=== PATIENT | female | born 1975 | race American Indian/Alaskan Native ===

== ENCOUNTER 2016-07-13 21:54 | Inpatient (IN) | payer OTHER ==
[2016-07-13] MEDS ORDERED: TYLENOL PO ONE (22:06)
[2016-07-13 23:07] LABS: Basophils % (Auto) 0.3 % (0.0-1.8); Eosinophils % (Auto) 0.9 % (0.0-4.3); Hematocrit 35.8 % (30.3-42.9); Hemoglobin 11.5 gm/dl (10.1-14.3); Mean Corpuscular HGB Conc 32 % (30-34); Platelet Count 362 K/mm3 (140-440); Red Blood Count 5.55 M/mm3 (3.65-5.03); Red Cell Distribution Width 15.2 % (13.2-15.2); White Blood Count 8.9 K/mm3 (4.5-11.0)
[2016-07-13 23:12] LABS: Mean Corpuscular Hemoglobin 21 pg (28-32); Mean Corpuscular Volume 65 fl (79-97)
[2016-07-13 23:31] LABS: Alanine Aminotransferase 23 units/L (7-56); Albumin 4.2 g/dL (3.9-5); Albumin/Globulin Ratio 1.3 %; Alkaline Phosphatase 71 units/L (35-129); Anion Gap 21 mmol/L; Bilirubin,Total 0.3 mg/dL (0.1-1.2); Blood Urea Nitrogen 9 mg/dL (7-17); Calcium 9.7 mg/dL (8.4-10.2); Carbon Dioxide 26 mmol/L (22-30); Chloride 95.6 mmol/L (98-107); Glucose 104 mg/dL (65-100); Lipase 24 units/L (13-60); Potassium 4.1 mmol/L (3.6-5.0); Sodium 138 mmol/L (137-145); Total Protein 7.5 g/dL (6.3-8.2)
[2016-07-13] MEDS: HEPARIN SUB-Q SCH (23:35)
[2016-07-14 01:14] LABS: Bilirubin,Urine NEG (Negative); Blood,Urine NEG (Negative); Ketones,Urine TR mg/dL (Negative); Leukocyte Esterase,Urine NEG (Negative); Mucus,Urine FEW /HPF; Nitrite,Urine NEG (Negative); Urobilinogen,Urine < 2.0 mg/dL (<2.0)
[2016-07-14] MEDS ORDERED: NACL 0.9% 1000 ML 1,000 ML IV ONE (03:04)
[2016-07-14] MEDS ORDERED: MORPHINE IV ONE (03:05)
[2016-07-14] MEDS ORDERED: ZOFRAN IV ONE (03:05)
--- NOTE | 2016-07-14 05:10 | Cat Scan Report ---
FINAL REPORT PROCEDURE: CT ABDOMEN PELVIS W CON TECHNIQUE: Computerized axial tomography of the abdomen and pelvis was performed after the IV injection of iodinated nonionic contrast. HISTORY: Abd pain upper abd COMPARISON: No prior studies are available for comparison. FINDINGS: Visualized lower thorax: No significant abnormality. Liver: Normal size and attenuation. Spleen: Normal size and attenuation. Gallbladder and biliary system: The gallbladder is distended. No evident stone formation is seen.. Pancreas: Normal. Adrenals: Normal. Kidneys: Normal. GI tract: There are few loops of fluid-filled dilated small bowel in the mid and lower abdomen. The loops of bowel are dilated up to 3.4 centimeters. Partial to complete small bowel obstruction are within the differential. The differential also includes ileus. The cecum, appendix and colon are normal.. Lymph nodes and mesentery: Normal. Vasculature: Normal. Bladder: Normal. Reproductive organs: The uterus is enlarged. There are multiple fibroids identified within the myometrium. No adnexal mass.. Peritoneum: No free fluid. Musculoskeletal structures: No significant abnormality. Other: None. IMPRESSION: There are multiple loops of dilated gas and fluid-filled small bowel in the mid and lower abdomen. Partial to complete small bowel obstruction is suspected. Ileus is also within the differential. Enlarged uterus with multiple fibroids.
--- NOTE | 2016-07-14 06:06 | Emergency Department Report ---
HPI - General Chief Complaint: Abdominal Pain Time Seen by Provider: 07/14/16 02:35 - HPI HPI: This is a 40-year-old Afro-Fijian female presents to the emergency department with complaint of a mid abdominal pain that has been going on intermittently for the past 2 weeks. However the pain got drastically worse today. There is no nausea, vomiting, diarrhea, fevers, back pain, vaginal bleeding or discharge. Patient has tried some ibuprofen for her discomfort without any relief. She denies any past medical history. She has a past surgical history of abdominal hernia repair as well as 2 C-sections. No recent travel or sick contacts at home. ED Past Medical Hx - Past Medical History Previous Medical History?: Yes Additional medical history: ABD HERNIA - Surgical History Past Surgical History?: Yes Additional Surgical History: HERNIA REPAIR / C SECTIONS X 2 - Social History Smoking Status: Never Smoker Substance Use Type: None - Medications Home Medications: Home Medications Medication Instructions Recorded Confirmed Last Taken Type No Known Home Medications [No 07/14/16 07/14/16 Unknown History Reported Home Medications] ED Review of Systems ROS: Stated complaint: ABD PAIN/EMESIS Other details as noted in HPI Comment: All other systems reviewed and negative Constitutional: denies: chills, fever Eyes: denies: eye pain, eye discharge, vision change ENT: denies: ear pain, throat pain Respiratory: denies: cough, shortness of breath, wheezing Cardiovascular: denies: chest pain, palpitations Gastrointestinal: abdominal pain. denies: nausea, vomiting Genitourinary: denies: urgency, dysuria, discharge Musculoskeletal: denies: back pain, joint swelling, arthralgia Skin: denies: rash, lesions Neurological: denies: headache, weakness, paresthesias Physical Exam - Physical Exam Vital Signs: Vital Signs 07/13/16 07/14/16 22:02 02:14 Temperature 98.8 F 98.7 F Pulse Rate 107 H 87 Respiratory 20 24 Rate Blood Pressure 128/95 Blood Pressure 125/89 [Right] O2 Sat by Pulse 100 100 Oximetry Physical Exam: GENERAL: The patient is well-developed well-nourished. HEENT: Normocephalic. Atraumatic. Extraocular motions are intact. Patient has moist mucous membranes. Pupils equal reactive to light bilaterally. NECK: Supple. Trachea is midline. CHEST/LUNGS: Clear to auscultation. There is no respiratory distress noted. HEART/CARDIOVASCULAR: Regular. There is no tachycardia. There is no gallop rub or murmur. ABDOMEN: Abdomen is soft. There is some generalized tenderness to palpation of the abdomen. Patient has normal bowel sounds. There is no abdominal distention. SKIN: There is no rash. Warm and dry. NEURO: The patient is awake, alert, and oriented. The patient is cooperative. The patient has no focal neurologic deficits. The patient has normal speech. MUSCULOSKELETAL: There is no tenderness or deformity. There is no limitation range of motion. There is no evidence of acute injury. ED Course Vital Signs 07/13/16 07/14/16 22:02 02:14 Temperature 98.8 F 98.7 F Pulse Rate 107 H 87 Respiratory 20 24 Rate Blood Pressure 128/95 Blood Pressure 125/89 [Right] O2 Sat by Pulse 100 100 Oximetry ED Medical Decision Making - Lab Data Result diagrams: 07/13/16 22:36 07/13/16 22:36 - Radiology Data Radiology results: report reviewed, image reviewed interpreted by me: Abdominal x-ray shows some areas of dilated loops. CT of the abdomen and pelvis with IV contrast shows multiple loops of dilated gas and fluid-filled small bowel in the mid and lower abdomen. Partial to complete small bowel obstruction is suspected. Ileus could also be within the differential. Enlarged uterus with multiple fibroids. - Medical Decision Making 40-year-old female presents to the emergency department with 2 week history of intermittent abdominal pain that got drastically worse today. Labs are mostly unremarkable. X-ray however shows some dilated dose of bowel. A CT of the abdomen and pelvis was done that shows partial to complete small bowel obstruction. Dr. Galeano has graciously agreed to admit the patient to his service. NG tube placed and returned to intermittent suction. Patient will be admitted for IV fluid resuscitation, pain control and further evaluation and treatment. - Differential Diagnosis bowel obstruction, ileus, gastroparesis, colitis Critical Care Time: No Critical care attestation.: If time is entered above; I have spent that time in minutes in the direct care of this critically ill patient, excluding procedure time. ED Disposition Clinical Impression: Small bowel obstruction Abdominal pain Qualifiers: Abdominal location: unspecified location Qualified Code(s): R10.9 - Unspecified abdominal pain Disposition: OP ADMITTED IP TO THIS HOSP Is pt being admited?: Yes Condition: Stable Instructions: Abdominal Pain (ED) Referrals: PRIMARY CARE, [Primary Care Provider] - 3-5 Days Time of Disposition: 06:07
[2016-07-14] MEDS: MORPHINE IV PRN ×4 (06:10→23:30)
[2016-07-14] MEDS: ZOFRAN IV PRN ×2 (06:30→11:21)
--- NOTE | 2016-07-14 06:54 | Admit Criteria Form ---
Admission Criteria Documentation: ABDOMINAL PAIN Clinical Indications for Admission to Inpatient Care (Place 'X' for any and all applicable criteria): Admission is indicated for ANY ONE of the following(1)(2)(3)(4)(5): [X ]I. Inpatient admission required rather than observation care (Also use Abdominal Pain: Observation Care, as appropriate) because of ANY ONE of the following: [ ]a) Severe pain requiring acute inpatient management [ ]b) Identification of etiology/finding that requires inpatient care (eg, aortic dissection, free air) [ ]c) Absent bowel sounds with complete ileus(6) [ ]d) Suspected toxic megacolon [ ]e) Severe electrolyte abnormalities requiring inpatient care [ ]f) High fever or infection requiring inpatient admission as indicated by ANY ONE of following(7)(8): [ ] i) Appropriate outpatient or observational care antimicrobial treatment unavailable, not effective, or not feasible [ ] ii) Documented bacteremia [ ] iii) Temperature > 104.9 degrees F (oral) [ ] iv) T >103.1 F (oral) or < 96.8 F(rectal) that does not respond to all emergency treatment measures [X ]g) Signs of intestinal obstruction [B] [ ]h) Hemodynamic instability [ ]i) IV fluid to replace significant ongoing losses (greater than 3 L/m2 per day) (12)(13) [ ]j) Percutaneous or open drainage (eg, abscess, biliary tract ) procedures [ ]k) Parenteral nutrition regimen that must be implemented on inpatient basis [ ]l) Other condition,treatment or monitoring requiring inpatient admission. [ ]II. Peritoneal signs present [ ]III. Surgery needed that cannot be performed on an ambulatory basis. [ ]IV. Evaluation requires patient to not eat or drink for extended period ( eg, more than 24 hours). [ ]V. Contraindications and/or Inappropriate clinical situations for Observational Care in patients with abdominal pain, when ANY ONE of the following is required: [ ]a) Thorough evaluation is required to prevent catastrophic events due to delays in diagnosing (e.g.Mesenteric ischemia) 1,3 [ ]b) Patient with severe pathology or with chronic symptoms unlikely to improve in the ED stay (3) [ ]. General contraindications and/or Inappropriate clinical situations for Observational Care in patients with abdominal pain, when ANY ONE of the following is required: [ ]a) Prediction of prolongation of LOS based on ANY ONE of the following may be considered as a contraindication for observational care 2, 3, 4, 5, 6, 7, 8, 9, 10, 11 [ ]i) Age > 65 yrs. [ ]ii) Patient arriving by ambulance [ ]iii) Patient with high acuity [ ]iv) Patient requiring vital sign monitoring [ ]v) Patient on IV medication [ ]b) Systolic blood pressures 180mmHg 3,12 [ ]c) Patient with altered mental status including delirium and other alteration of consciousness, (3) [ ]d) Patient whose discharge disposition will be to a intermediate home or rehabilitation home should not be managed in Emergency Department Observation Unit. CMS rule requires 3 days hospital stay before such placement.3,13 [ ]e) Patient with failure to thrive due to broad array of etiologies 3,16,17 [ ]f) Inability to ambulate 3,14 Extended stay beyond goal length of stay may be needed for(2)(3): [ ]a) Persistent abdominal pain with suspected intra-abdominal process [ ]b) Diagnosed condition requiring continued stay (e.g., pancreatitis, complicated diverticulitis) [ ]c) Surgery (e.g., colectomy) The original [facility] content created by [employer] has been revised. The portions of the content which have been revised are identified through the use of italic text or in bold, and [facility] has neither reviewed nor approved the modified material.All other unmodified content is copyright [facility]. Please see references footnoted in the original [facility] edition 2016 Admission Criteria Met: Yes
[2016-07-14] MEDS: NACL 0.9% 1000 ML 1,000 ML IV SCH ×2 (11:21→20:06)
--- NOTE | 2016-07-14 15:00 | History and Physical Report ---
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 She is a 40-year-old black female who has been having severe pain to the mid epigastrium and nausea and vomiting and inability to have a bowel movement in the last day. She did not pass any gas and the pain became very severe, prompted her to come to be seen in the Emergency Room. Apparently, CT scan showed evidence of the small-bowel obstruction. Her CBC showed a white count of 8.9, hemoglobin was 11.5. The potassium was pending. Bilirubin was normal. With the above-mentioned findings, Dr. Bonilla asked me to have her admitted. She had NG tube inserted and then she was admitted for observation. PAST SURGICAL HISTORY: She gives a history of 2 sections in the past. SOCIAL HISTORY: She does not smoke. ALLERGIC REACTIONS: Denied. PHYSICAL EXAMINATION: GENERAL: At this point, showed a well preserved black female. She is very sociable, in no distress. She had NG tube aspirating a bilious material. HEAD AND NECK: Negative. BREASTS: Symmetric. No evidence of specific masses. CHEST: Essentially clear. HEART: Sound normal. ABDOMEN: Protuberant, moderately soft with moderate tenderness all through. EXTREMITIES: Showed no significant edema. IMPRESSION: Abdominal pain, nausea, and vomiting with radiological evidence of small-bowel obstruction. I believe this need to be addressed with NG tube with suction, IV fluids. We will check her small bowel series tomorrow and we will go from there. I did indicate to the patient that hopefully that this will open up without anything and we will wait and see. JOB# [id number] YUMIKO/JEANINE
[2016-07-14] MEDS: HEPARIN SUB-Q SCH (15:40)
[2016-07-15] MEDS: NACL 0.9% 1000 ML 1,000 ML IV SCH ×2 (03:27→18:42)
[2016-07-15] MEDS: MORPHINE IV PRN ×4 (05:35→22:49)
[2016-07-15] MEDS: HEPARIN SUB-Q SCH ×3 (06:32→21:45)
[2016-07-15] MEDS ORDERED: NACL BACTERIOSTATIC INFILTRATI ONE (14:06)
--- NOTE | 2016-07-15 14:19 | Progress Note ---
Subjective Narrative: No progression of the contrast , in the Rt Mid abdome . Pt C/o pain in the area , needs exploration , talked to Pt , she agreed , will do today . Objective Vital Signs - 12hr 07/15/16 07/15/16 07/15/16 05:49 08:00 08:45 Temperature 98.7 F 97.4 F L Pulse Rate [ 78 81 Left] Respiratory 18 16 20 Rate Blood Pressure 140/81 142/87 [Left Arm] O2 Sat by Pulse 99 100 Oximetry - Labs 07/13/16 22:36 07/13/16 22:36
--- NOTE | 2016-07-15 14:32 | Anesthesia Day of Surgery ---
Anesthesia Day of Surgery - Day of Surgery Patient Examined: Yes Patient H&P Reviewed: Yes Patient is NPO: Yes
--- NOTE | 2016-07-15 14:35 | Anesthesia Consultation ---
Anesthesia Consult and Med Hx Date of service: 07/15/16 - Airway Anesthetic Teeth Evaluation: Good ROM Head & Neck: Adequate Mental/Hyoid Distance: Adequate Mallampati Class: Class II Intubation Access Assessment: Probably Good - Pulmonary Exam CTA: Yes - Cardiac Exam Cardiac Exam: RRR - Pre-Operative Health Status ASA Pre-Surgery Classification: ASA2 Proposed Anesthetic Plan: General - Pulmonary Hx Smoking: No Hx Asthma: No Hx Sleep Apnea: No - Cardiovascular System Hx Hypertension: No Hx Coronary Artery Disease: No - Central Nervous System Hx Psychiatric Problems: No - Endocrine Hx Renal Disease: No Hx Insulin Dependent Diabetes: No Hx Hyperthyroidism: No - Other Systems Hx Cancer: No Hx Obesity: Yes - Additional Comments Anesthesia Medical History Comments: SBO with nausea/vomiting.
[2016-07-15] MEDS ORDERED: NACL 0.9% IR ONE (14:42)
--- NOTE | 2016-07-15 14:45 | Fluoroscopy Report ---
FLUOROSCOPY SMALL BOWEL SERIES INDICATION: Small bowel obstruction. COMPARISON: None similar. Correlated to CT from yesterday. FINDINGS: Gastrografin small bowel series performed. Dural Mechanic radiograph partially images an esophagogastric tube tip in the stomach. Few air filled mid abdominal small bowel loops dilated to approximately 4.5 cm caliber. Mild stool and few bowel densities noted along the ascending colon. Two tubal ligation clips noted in the right hemipelvis. Approximately 1.6 cm partly calcified fibroid may overlie the sacrum on the left. Subsequently, Gastrografin introduced into the stomach via the esophagogastric tube and serial radiographs obtained. Slow antegrade progression noted with contrast opacifying the proximal jejunum after approximately 1 hour. Subsequent radiographs obtained at 4 hours out gradually opacify few mid abdominal small bowel loops dilated up to approximately 3.3 cm. No colonic contrast identified. CONCLUSION: 1. Slow antegrade progression of contrast with partial opacification of dilated mid abdominal small bowel loops that may represent small bowel obstruction in an appropriate setting. 2. Various other findings, as above, including 2 tubal ligation clips noted in the right hemipelvis in this patient with known myomatous uterus. Status of the left fallopian tube is thus uncertain in this setting for which WEB ARCHITECT/hysterosalpingogram correlation may be obtained, as warranted. Thank you for the opportunity to participate in this patient's care.
[2016-07-15] MEDS ORDERED: TRANSDERM-SCOP TD NR (14:50)
[2016-07-15] MEDS ORDERED: XYLOCAINE MPF 2% ONE (14:59)
[2016-07-15] MEDS ORDERED: SUBLIMAZE ONE (14:59)
[2016-07-15] MEDS ORDERED: QUELICIN ONE (14:59)
[2016-07-15] MEDS ORDERED: DIPRIVAN 10 MG/ML IV ONE (14:59)
[2016-07-15] MEDS ORDERED: ZEMURON IV ONE (14:59)
[2016-07-15] MEDS ORDERED: VERSED IV NR (15:00)
[2016-07-15] MEDS ORDERED: NACL 0.9% 1000 ML 1,000 ML IV SCH (15:00)
[2016-07-15] MEDS ORDERED: ZOFRAN IV NR (15:00)
[2016-07-15] MEDS ORDERED: PEPCID IV NR (15:00)
[2016-07-15] MEDS ORDERED: ANCEF ONE (15:48)
[2016-07-15] MEDS ORDERED: DILAUDID ONE (15:53)
[2016-07-15] MEDS ORDERED: NACL 0.9% 1000 ML 1,000 ML ONE (16:03)
[2016-07-15] MEDS ORDERED: ROBINUL ONE (16:04)
[2016-07-15] MEDS ORDERED: NEOSTIGMINE ONE (16:04)
--- NOTE | 2016-07-15 16:19 | Post Anesthesia Evaluation ---
- Post Anesthesia Evaluation Patient Participated: Yes Airway Patent: Yes Stable Respiratory Function: Yes Nausea/Vomiting: No Temp > 96.8F: Yes Pain Manageable: Yes Adequeate Hydration: Yes Anesthesia Complications: No Block Receding Appropriately: Not Applicable Patient on Ventilator: No
[2016-07-15] MEDS: DILAUDID IV PRN ×4 (17:20→17:50)
--- NOTE | 2016-07-15 22:10 | Operative Report ---
PREOPERATIVE DIAGNOSIS: Small-bowel obstruction. POSTOPERATIVE DIAGNOSIS: Small-bowel obstruction due to intussusception in the mid ileal area. Noted that the uterus is twice normal in size . There was small fibroid at its tip about 1 x 1 cm. Rest of examination did not reveal anything specific. ANESTHESIA: General. BLOOD LOSS: Minimal. FINDINGS: The patient had intussusception in the mid ileum giving complete obstruction of the area with dilated small bowel loops between 4 and 5 cm proximal and barely 1-2 cm distal. Otherwise, the entire GI tract was free. The ascending, transverse, and descending colon were okay. No evidence of any specific masses. The omentum is normal. DESCRIPTION OF PROCEDURE: With the patient in supine position, prepped and draped in usual fashion. I made a midline incision from above the umbilicus to about 10 cm below the umbilicus. Once I was in the umbilicus, there was evidence of apparently a hernia that was repaired with the use of Ventralex graft had to go through the graft itself to up the midline for about 5 cm below the umbilicus. At that point, I could see small intestine being dilated so I followed all this down to the ligament of Treitz, nothing specific was found. Then, I went to distally and beyond the area of obstruction. The small bowel was about 1-2 cm, so apparently I could see a mass within the small intestine with intussusception with a length of about 5 cm. So, I had to resect this area 5 cm proximal to that and 5 cm distal to that. I used for that purpose the CLINTON. Then, the anastomosis was performed using the CLINTON-75 also between 2 stay sutures of 2-0 Vicryl. Then, the defect was closed with a TA 60 and then this was reinforced with interrupted stitches of 3-0 Vicryl. Once I was well satisfied, we had good hemostasis. The mesentery was then closed with interrupted stitches of the same. It was barely about 3 cm. Then, the abdominal cavity was irrigated thoroughly. We had a new NG tube that gave about 700 mL of bilious like material. I was well satisfied, then the wound was closed in 1 layer, I used for that purpose #[address] superior and inferior and then the skin with carissa. A bandage was then applied and the patient was then transferred to the recovery room in good condition. JOB# [id number] YUMIKO/JEANINE HERNANDES
[2016-07-16] MEDS: DILAUDID IV PRN ×6 (00:13→22:22)
[2016-07-16] MEDS: ZOSYN/NS 4.5GM/100ML 4.5 GM/100 ML VIAL IV SCH ×3 (00:17→17:27)
[2016-07-16] MEDS: NACL 0.9% 1000 ML 1,000 ML IV SCH ×2 (03:55→17:26)
[2016-07-16] MEDS: HEPARIN SUB-Q SCH ×3 (05:21→22:10)
[2016-07-16 08:35] LABS: Basophils % (Auto) 0.4 % (0.0-1.8); Hematocrit 32.9 % (30.3-42.9); Hemoglobin 10.5 gm/dl (10.1-14.3); Mean Corpuscular HGB Conc 32 % (30-34); Platelet Count 312 K/mm3 (140-440); White Blood Count 8.4 K/mm3 (4.5-11.0)
[2016-07-16 08:46] LABS: Mean Corpuscular Hemoglobin 21 pg (28-32); Mean Corpuscular Volume 65 fl (79-97)
--- NOTE | 2016-07-16 09:56 | Progress Note ---
Subjective Patient Reports: Positive: still having pain, no flatus Narrative: awaik and responsive , talked to pt as to the fining and what was done interms of intussceseption ad Small bowel obstruction . indicated to her the need for the NG tube and IV fluids , Pt was encouraged to ambulate . Objective Vital Signs - 12hr 07/15/16 07/15/16 07/15/16 22:00 22:49 23:35 Temperature 98.6 F Pulse Rate [ 101 H Left] Respiratory 18 20 20 Rate Blood Pressure 124/89 [Left Arm] O2 Sat by Pulse 100 Oximetry 07/16/16 07/16/16 07/16/16 00:13 04:15 07:57 Temperature 98.6 F 98.0 F Pulse Rate [ 98 H Left] Respiratory 12 20 20 Rate Blood Pressure 135/87 131/80 [Left Arm] O2 Sat by Pulse 100 100 Oximetry - Labs 07/16/16 08:11 07/13/16 22:36
[2016-07-17] MEDS: ZOSYN/NS 4.5GM/100ML 4.5 GM/100 ML VIAL IV SCH ×3 (00:10→16:26)
[2016-07-17] MEDS: DILAUDID IV PRN ×5 (01:35→20:00)
[2016-07-17] MEDS: HEPARIN SUB-Q SCH ×3 (05:46→22:00)
[2016-07-17] MEDS: NACL 0.9% 1000 ML 1,000 ML IV SCH ×2 (07:40→21:20)
--- NOTE | 2016-07-17 18:47 | Progress Note ---
Subjective Patient Reports: Positive: no new complaints, feels better, pain is less, no flatus, no bowel movement Narrative: feels OK nG out abd soft will keep NPO IVs . will ambulate . Objective Vital Signs - 12hr 07/17/16 08:54 Temperature 99.1 F Pulse Rate [ 88 Left] Respiratory 20 Rate Blood Pressure 138/76 [Left Arm] O2 Sat by Pulse 98 Oximetry - Labs 07/16/16 08:11 07/13/16 22:36
[2016-07-18] MEDS: DILAUDID IV PRN ×5 (00:31→21:10)
[2016-07-18] MEDS: ZOSYN/NS 4.5GM/100ML 4.5 GM/100 ML VIAL IV SCH ×3 (00:32→17:44)
[2016-07-18] MEDS: HEPARIN SUB-Q SCH ×3 (06:40→22:50)
[2016-07-18 08:16] LABS: Anion Gap 19 mmol/L; Blood Urea Nitrogen 8 mg/dL (7-17); Calcium 7.9 mg/dL (8.4-10.2); Carbon Dioxide 21 mmol/L (22-30); Chloride 102.8 mmol/L (98-107); Glucose 59 mg/dL (65-100); Sodium 140 mmol/L (137-145)
[2016-07-18 08:25] LABS: Potassium 2.9 mmol/L (3.6-5.0)
[2016-07-18] MEDS: NACL 0.9% 1000 ML 1,000 ML IV SCH (10:18)
[2016-07-18] MEDS ORDERED: K-DUR PO ONE (11:46)
[2016-07-18] MEDS ORDERED: K-DUR PO SCH (12:00)
[2016-07-18] MEDS: ZOFRAN IV PRN ×2 (13:00→17:06)
--- NOTE | 2016-07-18 13:33 | Progress Note ---
Subjective Narrative: Feels nauseated , no vomiting , wond clean exposed . abd soft , had 2 BMs today , will give zofran non PRN Objective Vital Signs - 12hr 07/18/16 08:00 Temperature 98.3 F Pulse Rate [ 87 Left] Respiratory 18 Rate Blood Pressure 134/83 [Left Arm] O2 Sat by Pulse 100 Oximetry - Labs 07/16/16 08:11 07/18/16 07:30 Diabetes panel 07/18/16 Range/Units 07:30 Sodium 140 (137-145) mmol/L Potassium 2.9 L* D (3.6-5.0) mmol/L Chloride 102.8 (98-107) mmol/L Carbon Dioxide 21 L (22-30) mmol/L BUN 8 (7-17) mg/dL Creatinine 0.4 L (0.7-1.2) mg/dL Glucose 59 L (65-100) mg/dL Calcium 7.9 L D (8.4-10.2) mg/dL Calcium panel 07/18/16 Range/Units 07:30 Calcium 7.9 L D (8.4-10.2) mg/dL Pituitary panel 07/18/16 Range/Units 07:30 Sodium 140 (137-145) mmol/L Potassium 2.9 L* D (3.6-5.0) mmol/L Chloride 102.8 (98-107) mmol/L Carbon Dioxide 21 L (22-30) mmol/L BUN 8 (7-17) mg/dL Creatinine 0.4 L (0.7-1.2) mg/dL Glucose 59 L (65-100) mg/dL Calcium 7.9 L D (8.4-10.2) mg/dL Adrenal panel 07/18/16 Range/Units 07:30 Sodium 140 (137-145) mmol/L Potassium 2.9 L* D (3.6-5.0) mmol/L Chloride 102.8 (98-107) mmol/L Carbon Dioxide 21 L (22-30) mmol/L BUN 8 (7-17) mg/dL Creatinine 0.4 L (0.7-1.2) mg/dL Glucose 59 L (65-100) mg/dL Calcium 7.9 L D (8.4-10.2) mg/dL
[2016-07-18] MEDS: D5W/0.45% NACL/KCL 20 MEQ 20 MEQ/1,000 ML BAG IV SCH (14:35)
--- NOTE | 2016-07-18 18:46 | XRay Report ---
FINAL REPORT PROCEDURE: XR ABDOMEN 1V AP TECHNIQUE: AP view of the abdomen is obtained HISTORY: POST OP N/V COMPARISON: CT exam dated July 14, 2016 FINDINGS: Mild retained GI contrast is seen in the:. There is dilation of small bowel loops in the right side of the abdomen measuring up to 4 cm in diameter. Findings are concerning for possible small bowel obstruction distally. Postsurgical changes are seen in the left side of the abdomen. IMPRESSION: Dilated small bowel is seen in the right side of the abdomen with no colonic dilation. Distal small bowel obstruction is not excluded. Correlation abdomen and pelvic CT may be useful.
[2016-07-19] MEDS: DILAUDID IV PRN ×4 (01:30→19:49)
[2016-07-19] MEDS: K-DUR PO SCH ×3 (02:26→21:02)
[2016-07-19] MEDS: ZOSYN/NS 4.5GM/100ML 4.5 GM/100 ML VIAL IV SCH ×3 (02:26→16:00)
[2016-07-19] MEDS ORDERED: KCL 50 MEQ in NACL 0.45% 500 ML IV SCH (04:30)
[2016-07-19] MEDS: HEPARIN SUB-Q SCH ×3 (06:38→21:03)
[2016-07-19 09:17] LABS: Anion Gap 17 mmol/L; Blood Urea Nitrogen 5 mg/dL (7-17); Calcium 7.5 mg/dL (8.4-10.2); Carbon Dioxide 23 mmol/L (22-30); Chloride 102.6 mmol/L (98-107); Glucose 106 mg/dL (65-100); Potassium 3.1 mmol/L (3.6-5.0); Sodium 139 mmol/L (137-145)
--- NOTE | 2016-07-19 15:10 | Progress Note ---
Subjective Patient Reports: Positive: feels better, pain is less, flatus, bowel movement Narrative: doing OK lots of flatus , No BM today , Wii see if Pt can go home this PM ,to see me in off in a week . Objective Vital Signs - 12hr 07/19/16 08:00 Temperature 98.0 F Pulse Rate [ 68 Left] Respiratory 18 Rate Blood Pressure 136/86 [Left Arm] O2 Sat by Pulse 100 Oximetry - Labs 07/16/16 08:11 07/19/16 08:14 Diabetes panel 07/19/16 Range/Units 08:14 Sodium 139 (137-145) mmol/L Potassium 3.1 L (3.6-5.0) mmol/L Chloride 102.6 (98-107) mmol/L Carbon Dioxide 23 (22-30) mmol/L BUN 5 L (7-17) mg/dL Creatinine 0.4 L (0.7-1.2) mg/dL Glucose 106 H (65-100) mg/dL Calcium 7.5 L (8.4-10.2) mg/dL Calcium panel 07/19/16 Range/Units 08:14 Calcium 7.5 L (8.4-10.2) mg/dL Pituitary panel 07/19/16 Range/Units 08:14 Sodium 139 (137-145) mmol/L Potassium 3.1 L (3.6-5.0) mmol/L Chloride 102.6 (98-107) mmol/L Carbon Dioxide 23 (22-30) mmol/L BUN 5 L (7-17) mg/dL Creatinine 0.4 L (0.7-1.2) mg/dL Glucose 106 H (65-100) mg/dL Calcium 7.5 L (8.4-10.2) mg/dL Adrenal panel 07/19/16 Range/Units 08:14 Sodium 139 (137-145) mmol/L Potassium 3.1 L (3.6-5.0) mmol/L Chloride 102.6 (98-107) mmol/L Carbon Dioxide 23 (22-30) mmol/L BUN 5 L (7-17) mg/dL Creatinine 0.4 L (0.7-1.2) mg/dL Glucose 106 H (65-100) mg/dL Calcium 7.5 L (8.4-10.2) mg/dL
[2016-07-19] MEDS ORDERED: MILK OF MAGNESIA PO PRN (17:27)
--- NOTE | 2016-07-19 19:29 | XRay Report ---
FINAL REPORT EXAM: XR ABDOMEN 1V AP HISTORY: S/P [facility] TECHNIQUE: Supine views of the abdomen PRIORS: x-rays abdomen 07/18/2016 FINDINGS: A midline vertical row of skin carissa is noted with 2 metallic surgical clips in the right lower quadrant. The gaseous distention of small bowel in the right abdomen has completely resolved in the interim. Mild residual oral contrast in the ascending colon and rectum remains. Currently, the bowel gas pattern is nonspecific. No free air is identified. Soft tissues have no evidence for mass shadows or calcifications. The bony structures are intact. IMPRESSION: Nonspecific, nonobstructive bowel gas pattern with no acute process noted. Complete resolution of gaseous distention of small bowel seen previously.
[2016-07-19] MEDS: D5W/0.45% NACL/KCL 20 MEQ 20 MEQ/1,000 ML BAG IV SCH (22:57)
[2016-07-20] MEDS: ZOSYN/NS 4.5GM/100ML 4.5 GM/100 ML VIAL IV SCH ×2 (00:22→08:08)
[2016-07-20] MEDS: DILAUDID IV PRN (02:54)
[2016-07-20] MEDS: HEPARIN SUB-Q SCH (06:18)
[2016-07-20] MEDS: D5W/0.45% NACL/KCL 20 MEQ 20 MEQ/1,000 ML BAG IV SCH (08:54)
[2016-07-20 09:03] VITALS: BP 117/79
[2016-07-20] MEDS: K-DUR PO SCH (09:03)
--- NOTE | 2016-07-20 23:57 | Discharge Summary ---
HOSPITAL COURSE: This patient was admitted 5 days ago because of pain in the abdomen with radiological evidence of small-bowel obstruction with nausea and vomiting. She had a KUB that showed the above and then, a Gastrografin small bowel series showed also complete obstruction. She was taken to the operating room on Monday afternoon where she underwent exploratory laparotomy with small bowel resection. 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 Since then, she has been doing progressively well. We had the NG tube. This was removed on the second postoperative day. She was started on liquids. She was passing flatus. She had good bowel movements. At this time, today, I believe she may go home. I had a lengthy talk with her and with her as to the need to just stay at home. No pushing, no pulling, no driving, advance her food to regular diet and I did indicate to her that we do not know the pathology. We are going to see what that is. Our pathologist sent the specimen to outside lab to familiarize the issue of the diagnosis. She was given prescription. She was to take Aleve every 4 hours p.r.n. for pain and to call me if she has any problem, to see me in about 10 days. FINAL DIAGNOSIS: Pending pathology report. JOB# [id number] YUMIKO/JEANINE
== END 2016-07-20 12:00 | disposition home or self-care (01) | DRG 331 ==
LOC: ED 21:54 → 3A 07-14 06:08 → 2B-SURG 07-14 08:07
PROVIDERS: ADMIT Surgery; ATTEND Surgery
PROC: 0DB80ZZ Excision of Small Intestine, Open Approach (ICD-10-PCS; principal; 2016-07-15)
DX: K56.69 Other intestinal obstruction (principal); K56.1 Intussusception; D13.30 Benign neoplasm of unspecified part of small intestine
CPT/HCPCS: 36415; 74000; 74020; 74177; 74250; 80048; 80053; 81001; 81025; 83690; 85025; 88305; 88342; 96361; 96374; 96375; J0330; J0690; J1170; J1644; J2250; J2270; J2405; J2543; J2704; J2710; J3010; J3480; J7030; Q9963; Q9967